=== PATIENT | male | born 1995 | race Caucasian/White ===

== ENCOUNTER 2020-04-21 12:33 | Emergency (ER) | payer BC ==
[~2020-04-21] VITALS: Ht 162.6 cm; Wt 68.2 kg
[2020-04-21 12:40] VITALS: BP 136/80
== END 2020-04-21 13:50 | disposition home or self-care (01) ==
LOC: ER 12:34
DX: R05 Cough (principal); M79.10 Myalgia, unspecified site; F50.9 Eating disorder, unspecified
CPT/HCPCS: 36415; 99281; 99282